=== PATIENT | male | born 1975 | race Caucasian/White ===

== ENCOUNTER 2023-11-07 10:48 | Emergency (ER) | payer SELFPAY ==
[2023-11-07] MEDS: Amoxicillin 500 MG Cap PO ONE (11:28)
== END 2023-11-07 11:33 | disposition home or self-care (01) ==
LOC: LB.ED 10:48
DX: J01.20 Acute ethmoidal sinusitis, unspecified (principal); I10 Essential (primary) hypertension; F17.210 Nicotine dependence, cigarettes, uncomplicated; Z79.899 Other long term (current) drug therapy
CPT/HCPCS: 99283; A9270